=== PATIENT | female | born 1950 | race Caucasian/White ===

== ENCOUNTER 2017-01-22 06:07 | Observation (INO) | payer MEDICARE ==
[~2017-01-22] VITALS: Ht 162.6 cm; Wt 86.7 kg
[~2017-01-22 06:07] MED LIST: FURO1TAB62 PO; LISI2.5T3 PO; MACR100C2 PO; POTA10TA8 PO; PROM1SUP7 RECTAL; PROP10TA6 PO; TRIL45CA PO
[2017-01-22] MEDS ORDERED: LACTATED RINGER'S 1000 ML INJ 1,000 ML ONE (06:56)
[2017-01-22] MEDS ORDERED: SODIUM CHLORIDE 0.9% INJ 100 ML ONE (06:56)
[2017-01-22] MEDS ORDERED: CLINDAMYCIN PHOS 900 MG/6 ML VIAL ONE (06:56)
[2017-01-22] MEDS ORDERED: ZYRT10CA PO (07:00)
[2017-01-22] MEDS ORDERED: RANI150T PO (07:00)
[2017-01-22] MEDS ORDERED: FLOR250C PO (07:00)
[2017-01-22] MEDS ORDERED: CEFT500T3 PO (07:00)
[2017-01-22] MEDS ORDERED: GABA300C5 PO (07:00)
[2017-01-22] MEDS ORDERED: VALS1TAB64 PO (07:03)
[2017-01-22 07:08] VITALS: BP 138/85; PULSE 59; RESP 20; TEMP 97.7; O2SAT 99
[2017-01-22] MEDS ORDERED: LIDOCAINE 1%/EPINEPHrine 1:100,000 SOLN 30 ML VIAL ONE (07:09)
[2017-01-22] MEDS ORDERED: BACITRACIN TOP OINT 15 GM TUBE ONE (07:09)
[2017-01-22] MEDS ORDERED: OXYMETAZOLINE HCL 0.05% 15 ML NASAL SPRAY ONE (07:09)
[2017-01-22] MEDS ORDERED: MIDAZOLAM HCL 2 MG/2 ML VIAL ONE (07:10)
[2017-01-22] MEDS ORDERED: DEXAMETHASONE SOD PHOS 4 MG/ML VIAL ONE (07:10)
[2017-01-22] MEDS ORDERED: FAMOTIDINE 20 MG/2 ML VIAL ONE (07:11)
[2017-01-22] MEDS ORDERED: fentaNYL CITRATE 250 MCG/5 ML AMP ONE (07:13)
[2017-01-22] MEDS ORDERED: CLINDAMYCIN 600 MG/NS 100 ML IV SCH ×2 (10:00)
[2017-01-22] MEDS ORDERED: HYDROmorphone HCL PF 1 MG/ML VIAL ONE (10:12)
[2017-01-22] MEDS ORDERED: DO NOT ADM ANY ANTICOAGULANT DRUGS PRN (10:15)
[2017-01-22] MEDS: LACTATED RINGER'S 1000 ML INJ 1,000 ML IV SCH ×2 (10:15→23:53)
[2017-01-22 11:51] VITALS: O2SAT 95
[2017-01-22 12:00] VITALS: BP 137/80; PULSE 51; RESP 20; TEMP 96.4; O2SAT 97
[2017-01-22] MEDS ORDERED: NEOSTIGMINE 3 MG/3 ML SYR IV ONE (12:00)
[2017-01-22] MEDS ORDERED: PROPOFOL 200 MG/20 ML AMP IV ONE (12:00)
[2017-01-22] MEDS ORDERED: ONDANSETRON HCL 4 MG/2 ML VIAL IV PUSH ONE (12:00)
[2017-01-22] MEDS: CLINDAMYCIN 600 MG/NS 100 ML IV SCH ×4 (12:00→21:31)
[2017-01-22] MEDS: ONDANSETRON HCL 4 MG/2 ML VIAL IV PRN (12:44)
[2017-01-22] MEDS: ACETAMINOPHEN/HYDROcodone 325 MG/5 MG TAB PO PRN ×3 (12:45→21:47)
[2017-01-22 16:00] VITALS: BP 150/78; PULSE 70; RESP 20; TEMP 96.4; O2SAT 98
[2017-01-22 20:00] VITALS: BP 156/88; PULSE 65; RESP 20; TEMP 96; O2SAT 100
[2017-01-22 20:39] VITALS: O2SAT 100
[2017-01-23] VITALS: BP 181/86; PULSE 54; RESP 20; TEMP 97.1; O2SAT 99
[2017-01-23 04:00] VITALS: BP 188/88; PULSE 59; RESP 20; TEMP 97.5; O2SAT 98
[2017-01-23] MEDS: CLINDAMYCIN 600 MG/NS 100 ML IV SCH ×2 (04:00)
[2017-01-23] MEDS ORDERED: HYDROmorphone HCL PF 2 MG/ML VIAL IV PUSH ONE (05:30)
[2017-01-23] MEDS: ONDANSETRON HCL 4 MG/2 ML VIAL IV PRN (06:49)
[2017-01-23 08:00] VITALS: BP 185/99; PULSE 65; RESP 19; TEMP 97.8; O2SAT 99
[2017-01-23] MEDS ORDERED: HYDR-3516 PO (08:12)
[2017-01-23] MEDS ORDERED: LEVA500T PO (08:12)
--- NOTE | 2017-01-23 11:20 | EKG ---
Date Performed: 01/22/2017 Time Performed: 07:25:36 PTAGE: 66 years EKG: Sinus rhythm . Normal ECG PREVIOUS TRACING : 11/04/2008 13.14 DOCTOR: Braden Foster Interpretating Date/Time 01/23/2017 11:18:20
--- NOTE | 2017-01-28 12:38 | MP ---
cc: JULIA PETTIT M.D. DATE OF SURGERY: 01/22/[address] Julia Pettit PREOPERATIVE DIAGNOSIS 1. Nasal airway obstruction. 2. Nasal septal deviation. 3. Hypertrophy of inferior turbinates. 4. Chronic pansinusitis. POSTOPERATIVE DIAGNOSIS 1. Nasal airway obstruction. 2. Nasal septal deviation. 3. Hypertrophy of inferior turbinates. 4. Chronic pansinusitis. OPERATION PERFORMED 1. Open repair nasal septal fracture. 2. Bilateral submucosal resection of inferior turbinates. 3. Bilateral endoscopic exploration of frontal sinus ducts with balloon sinus dilation. 4. Bilateral endoscopic maxillary antrostomy with removal of maxillary sinus tissue. 5. Bilateral endoscopic sphenoidotomy with balloon dilation. INDICATIONS The indications are documented in the history and physical. DESCRIPTION OF OPERATION The patient was taken to OR #2 and placed in the supine position. Following induction of general anesthesia and intubation the nose was packed bilaterally with cotton pledgets saturated in 0.05% oxymetazoline. The nasal septum and inferior turbinates were injected with a total of 6 mL of 1% Xylocaine with epinephrine 1:100,000. She was then prepped and draped for surgery. Nasal packing was removed and a hemitransfixion incision was made in the left nasal vestibule. Through this incision the septal mucosa was elevated as far as the junction of the bony cartilaginous septum. This revealed the quadrangular cartilage which showed evidence of old fracture with numerous long-healed fracture segments which were obstructing the nasal airway bilaterally. A cumulative area of 2 x 2 cm was removed in a piecemeal fashion using a [place] elevator and Trumbull-Preston forceps. This was completed preserving 1.5 cm dorsal and caudal cartilaginous struts. When that was completed the mucosa was elevated from the bony septum and the maxillary crest. These were removed using Yared-Preston forceps and [place] septal forceps on the bony septum. This included a large spur deviating to the left side. The maxillary crest was removed using a 6 mm Elkins chisel. The incision was then closed using a running suture of 4-0 chromic and the mucosal layers of septum were approximated to each other with a quilting stitch of 4-0 plain gut. The inferior turbinates were then fractured out medially and stab incisions made along their inferior surfaces. Through these incisions the submucosal soft tissue was reduced approximately 30% using a curet and preserving the conchal bone. The incisions were then cauterized using the suction Bovie at 35 allen and the remnants of the inferior turbinates were then re-lateralized to the lateral nasal wall. At this point forward the operation was completed using endoscopic visualization. Additional injections of lidocaine and epinephrine were made into the attachments of the middle turbinates as well as into the uncinate process as in the ethmoid cells. The frontal sinuses were addressed first using the balloon sinus technique. On the left side the guidewire was advanced into the frontal sinus and verified to be in the proper location within the sinus cavity. The balloon was then advanced over the guidewire and inflated at the superior level at the midpoint and inferiorly at the junction of the duct with the ethmoid cells to a pressure of 12 atmospheres. The balloon was then removed and the duct was inspected and verified to be patent all the way into the frontal sinus. The right frontal duct was then operated in the same fashion. Attention was then turned to the maxillary sinuses. The left maxillary ostium was enlarged using a 3 mm olive-tip suction and then Stammberger forceps used to further enlarge the opening. The cavity was filled with polypoid tissue which was debrided using the upbiting Blakesley forceps. The right maxillary ostium and sinus was then operated in the same fashion. Lastly the sphenoid sinuses were addressed. The ostium was enlarged using a #10 suction and also with the balloon dilation technique. On each side the ostium was cannulated and inflated to a pressure of 12 atmospheres. It was verified patent using the 0 degree scope. The sinuses were then irrigated and suctioned. The nose was packed with Merocel tampons coated in bacitracin ointment. The procedure was terminated. The patient was reversed from anesthesia and taken to Recovery in good condition. There were no complications. Blood loss was 200 mL. MD GOERGE Caballero/TYLER /10:07 AM /12:26 PM
== END 2017-01-23 08:43 | disposition home or self-care (01) ==
LOC: PHSDC 06:07 → HSDI 07:49 → UNDOADMOB 07:49 → PH3A 12:06
PROVIDERS: ADMIT Otolaryngology; ATTEND Otolaryngology
DX: J34.2 Deviated nasal septum (principal); J34.3 Hypertrophy of nasal turbinates; J32.4 Chronic pansinusitis; E78.5 Hyperlipidemia, unspecified; I10 Essential (primary) hypertension; K21.9 Gastro-esophageal reflux disease without esophagitis; E66.9 Obesity, unspecified; Z88.0 Allergy status to penicillin; Z88.8 Allergy status to other drugs, medicaments and biological substances; Z91.040 Latex allergy status; Z88.5 Allergy status to narcotic agent; Z68.32 Body mass index [BMI] 32.0-32.9, adult; Z87.891 Personal history of nicotine dependence
CPT/HCPCS: 30140; 31267; 31296; 31297; 93005; 94762; G0378; J1100; J1170; J2250; J2405; J2710; J3010; J7120